=== PATIENT | female | born 1975 | race Caucasian/White ===

== ENCOUNTER 2021-02-11 16:16 | Emergency (ER) | payer OTHER ==
[2021-02-11 19:12] LABS: HEMOGLOBIN 14.6 gm/dl (12.3-15.3); RED BLOOD COUNT 5.27 M/UL (4.00-5.10); WHITE BLOOD COUNT 12.8 K/UL (4.5-11.0)
[2021-02-11 19:34] LABS: BUN/CREATININE RATIO 25 (0-10)
[2021-02-11] MEDS ORDERED: ZOFRAN ODT 4 MG4 MG PO (21:58)
[2021-02-11] MEDS ORDERED: BENTYL 20MG TAB20 MG PO (21:58)
== END 2021-02-11 22:00 | disposition home or self-care (01) ==
LOC: ER1 16:16
PROVIDERS: Physician Assistant
DX: R10.813 Right lower quadrant abdominal tenderness (principal); F17.210 Nicotine dependence, cigarettes, uncomplicated; Z88.0 Allergy status to penicillin; Z91.041 Radiographic dye allergy status; Z88.8 Allergy status to other drugs, medicaments and biological substances; Z85.41 Personal history of malignant neoplasm of cervix uteri
CPT/HCPCS: 80053; 81001; 83690; 84703; 85025; 87086; 96374; 96375; 99284; J1885; J2405; Q9967

== ENCOUNTER 2021-08-02 14:32 | Emergency (ER) | payer OTHER ==
[~2021-08-02 14:32] MED LIST: BENTYL 20MG TAB20 MG PO; ZOFRAN ODT 4 MG4 MG PO
[2021-08-02 16:08] LABS: HEMOGLOBIN 15.1 gm/dl (12.3-15.3); RED BLOOD COUNT 5.18 M/UL (4.00-5.10); WHITE BLOOD COUNT 16.6 K/UL (4.5-11.0)
[2021-08-02 16:25] LABS: BUN/CREATININE RATIO 22 (0-10)
== END 2021-08-02 18:52 | disposition home or self-care (01) ==
LOC: ER1 14:32
PROVIDERS: Physician Assistant
DX: N13.2 Hydronephrosis with renal and ureteral calculous obstruction (principal)
CPT/HCPCS: 80053; 81001; 84703; 85025; 96374; 96375; 99284; J1170; J1885; J2405

== ENCOUNTER → 2022-01-01 | Outpatient (CLI) | payer OTHER | LOC: KOH-I 14:18 | DX: M54.2 Cervicalgia (principal); M54.6 Pain in thoracic spine | CPT/HCPCS: 72040; 72070 ==